=== PATIENT | male | born 1995 | race Two or more races ===

== ENCOUNTER 2019-02-13 06:00 | Emergency (ER) | payer BC, OTHER ==
[2019-02-13 06:14] VITALS: BMI 25.8
[2019-02-13] MEDS ORDERED: SODIUM CHLORIDE 0.9% 1000 ML INFUS.BAG IV ONE (08:09)
--- NOTE | 2019-02-13 08:09 | PDOC ---
History of Present Illness - General Chief Complaint: Altered Mental Status Stated Complaint: AMS Time Seen by Provider: 02/13/19 07:27 History Source: Patient Exam Limitations: No Limitations - History of Present Illness Initial Comments: 02/13/19 08:04 23M with a PMH of asthma who presents to the ER after having a shaking episode. The patient states that him and his friend were smoking marijuana. He then developed chest pain and began to feel weak. He states that he leaned on his friend and felt shaking. His friend states that after the patient leaned on him , he had shaking in his upper extremities without bowel/bladder incontinence, syncope, tongue biting. The patient was not disoriented after this episode. He denies SOB, nausea, vomiting, fever, chills, palpitations, diaphoresis, abdominal pain. He admits to a sharp R parasternal pain that radiates to his neck, is constant, atraumatic, and not worsened with palpation or position. Past History - Past Medical History Allergies/Adverse Reactions: Allergies Allergy/AdvReac Type Severity Reaction Status Date / Time peanut Allergy Verified 02/13/19 08:22 Home Medications: Ambulatory Orders NK [No Known Home Medication] 02/13/19 COPD: No - Suicide/Smoking/Psychosocial Hx Smoking History: Never smoked Have you smoked in the past 12 months: No Hx Alcohol Use: No Drug/Substance Use Hx: Yes (weed) Review of Systems - Review of Systems Able to Perform ROS?: Yes Comments:: 02/13/19 08:25 GENERAL/CONSTITUTIONAL: No fever or chills. No weakness. HEAD, EYES, EARS, NOSE AND THROAT: No change in vision. No ear pain or discharge. No sore throat. CARDIOVASCULAR: + for chest pain. No palpitations or lightheadedness. RESPIRATORY: No cough, wheezing, shortness of breath, or hemoptysis. GASTROINTESTINAL: No abdominal pain, nausea, vomiting, diarrhea, or constipation. GENITOURINARY: No dysuria, frequency, hematuria, or change in urination. MUSCULOSKELETAL: No joint or muscle swelling or pain. No neck or back pain. SKIN: No rash or lesions. NEUROLOGIC: No headache, numbness, tingling, focal weakness, loss of consciousness, or change in strength/sensation. Is the patient limited Stateless proficient: No *Physical Exam - Vital Signs Last Vital Signs Temp Pulse Resp BP Pulse Ox 107 H 18 153/75 100 02/13/19 06:11 02/13/19 06:11 02/13/19 06:11 02/13/19 06:22 - Physical Exam Comments: 02/13/19 08:26 GENERAL: Well developed, well nourished. Lethargic but arousable. No acute distress. HEENT: Normocephalic, atraumatic. Hearing grossly normal. Moist mucous membranes. Dilated pupils, reactive, EOMI. No conjunctival pallor. Sclera are non-icteric. NECK: Supple. Full ROM. No JVD. CARDIOVASCULAR: Regular rate and rhythm. No murmurs, rubs, or gallops. PULMONARY: No evidence of respiratory distress. Lungs clear to auscultation bilaterally. No wheezing, rales or rhonchi. ABDOMINAL: Soft. Non-tender. Non-distended. No rebound or guarding. GENITOURINARY: No CVA tenderness bilaterally. MUSCULOSKELETAL: Normal range of motion at all joints. No bony deformities or tenderness. EXTREMITIES: No cyanosis. No clubbing. No edema. No calf tenderness or swelling. SKIN: Warm and dry. Normal capillary refill. No rashes. No jaundice. NEUROLOGICAL: Alert, awake, appropriate. Cranial nerves 2-12 grossly intact. Normal speech. Gait is normal without ataxia. PSYCHIATRIC: Cooperative. Good eye contact. Appropriate mood and affect. ED Treatment Course - LABORATORY CBC & Chemistry Diagram: 02/13/19 08:04 02/13/19 08:04 - RADIOLOGY Radiology Studies Ordered: Category Date Time Status CHEST PA & LAT [RAD] Stat Radiology 02/13/19 07:40 Ordered Medical Decision Making - Medical Decision Making 02/13/19 08:27 23M who presents with CP after smoking marijuana with dilated pupils concerning for laced product. Pt denies other drug use and states he is "not concerned" about the product being laced. Mother at the bedside demanding information and stating "I am a [employer] at [facility], I was going to sign him out and take him there. I want papers to be his health care proxy". I informed her that we are in the process of evaluating him and that is all the information I can provide. Ddx: marijuana intox, pneumo, anxiety. Due to dilated pupils, concern for cocaine intox and ACS 2/2 vasospasm. EKG shows sinus tach. 02/13/19 09:43 Labs including CBC, CMP, trop unremarkable. Utox negative for everything except opiates. Will give toradol for CP and reassess. 02/13/19 10:16 Pt feels better on reassessment. Will d/c with PCP f/u. *DC/Admit/Observation/Transfer Diagnosis at time of Disposition: Atypical chest pain Marijuana intoxication Qualifiers: Complication of substance-induced condition: uncomplicated Qualified Code(s): F12.920 - Cannabis use, unspecified with intoxication, uncomplicated - Discharge Dispostion Disposition: HOME Condition at time of disposition: Stable Decision to Admit order: No - Referrals - Patient Instructions Printed Discharge Instructions: DI for Atypical Chest Pain Additional Instructions: Your ER visit is not complete until your follow up with your primary care physician. Please follow up with your primary care physician in 1-2 days. Please return to the ER if you have any signs or symptoms of chest pain, shortness of breath, uncontrollable fever, chills, nausea, vomiting, numbness, tingling, or weakness in any part of your body, changes in vision, or slurred speech. Please return to the ER if symptoms persist, worsen, or new symptoms arise. - Post Discharge Activity
[2019-02-13 08:13] LABS: BASO % 0.2 % (0-2.0); EOS % 0.1 % (0-4.5); HEMATOCRIT 43.6 % (35.4-49); HEMOGLOBIN 14.9 GM/dL (11.7-16.9); LYMPH % 13.4 % (8-40); MCH 31.3 pg (25.7-33.7); MCHC 34.1 g/dl (32.0-35.9); MEAN CELL VOLUME 91.8 fl (80-96); MEAN PLT VOLUME 8.2 fl (7.5-11.1); MONO % 11.1 % (3.8-10.2); NEUT % 75.2 % (42.8-82.8); PLATELET COUNT 239 K/MM3 (134-434); RBC 4.75 M/mm3 (4.00-5.60); RDW 13.5 % (11.9-15.9); WHITE BLOOD COUNT 8.8 K/mm3 (4.0-10.0)
--- NOTE | 2019-02-13 09:00 | PDOC ---
Attending Attestation - Resident Resident Name: Raciel Green - ED Attending Attestation I have performed the following: I have examined & evaluated the patient, The case was reviewed & discussed with the resident, I agree w/resident's findings & plan, Exceptions are as noted - HPI HPI: 23 yo M history asthma presents with an episode of weakness and shaking this morning after smoking marijuana at 5am. Episode was witnessed by friend. He has used marijuana in the past, did not do anything differently, uses the same dealer. He states that he felt some R-sided chest pain, then felt weak, had difficulty standing. Denies SOB, cough, ARAG[place]. Currently feeling better. Denies trauma. - Physicial Exam PE: GENERAL: Awake, somnolent, answers questions. +Odor of marijuana HEAD: No signs of trauma EYES: PERRLA, EOMI, sclera anicteric, conjunctiva clear ENT: Auricles normal inspection, hearing grossly normal, nares patent, oropharynx clear without exudates. Moist mucosa NECK: Normal ROM, supple, no lymphadenopathy, JVD, or masses LUNGS: Breath sounds equal, clear to auscultation bilaterally. No wheezes, and no crackles. +Tenderness to R upper chest wall at the sternal margin HEART: Regular rate and rhythm, normal S1 and S2, no murmurs, rubs or gallops ABDOMEN: Soft, nontender, normoactive bowel sounds. No guarding, no rebound. No masses EXTREMITIES: Normal range of motion, no edema. No clubbing or cyanosis. No cords, erythema, or tenderness NEUROLOGICAL: Cranial nerves II through XII grossly intact. Normal speech, normal gait. Motor and sensation intact SKIN: Warm, Dry, normal turgor, no rashes or lesions noted. - Medical Decision Making Pt presents after using marijuana early this morning, had an episode of weakness , cp. Will check basic labs, UTox (to make sure it was not laced with something) , trop, and CXR (r/o ptx). IV fluids, toradol for pain. Will discharge when more alert.
[2019-02-13 09:01] LABS: ALK PHOS 79 U/L (45-117); ANION GAP 8 MMOL/L (8-16); BILIRUBIN,TOTAL 0.8 mg/dL (0.2-1); BLOOD UREA NITROGEN 21.3 mg/dL (7-18); CALCIUM 8.6 mg/dL (8.5-10.1); CHLORIDE 110 mmol/L (98-107); CO2 20 mmol/L (21-32); CREATININE 1.1 mg/dL (0.55-1.3); GLUCOSE,RANDOM 88 mg/dL (74-106); POTASSIUM 4.8 mmol/L (3.5-5.1); SGOT/AST 28 U/L (15-37); SGPT/ALT 31 U/L (13-61); SODIUM 139 mmol/L (136-145); TOT PROT 7.2 g/dl (6.4-8.2)
[2019-02-13] MEDS ORDERED: KETOROLAC TROMETHAMINE 30 MG/1 ML VIAL IVPUSH ONE (09:37)
[2019-02-13 09:41] LABS: COCAINE, UR NEGATIVE ng/ml (CUTOFF=300); METHADONE, UR NEGATIVE ng/ml (CUTOFF=300); OPIATES, URI NEGATIVE ng/ml (CUTOFF=300); PHENCYCLIDINE,URINE NEGATIVE ng/ml (CUTOFF=25); URINE AMPHETAMINES NEGATIVE ng/ml (CUTOFF=500); URINE BARBITURATES NEGATIVE ng/ml (CUTOFF=200); URINE BENZODIAZEPINES NEGATIVE ng/ml (CUTOFF=200)
[2019-02-13] MEDS ORDERED: KETOROLAC TROMETHAMINE 30 MG/1 ML VIAL ONE (09:43)
[2019-02-13 10:35] VITALS: BP 112/56; PULSE 78; TEMP 97.9
--- NOTE | 2019-02-13 13:32 | EKG ---
Test Reason : Blood Pressure : / mmHG Vent. Rate : 103 BPM Atrial Rate : 103 BPM P-R Int : 172 ms QRS Dur : 094 ms QT Int : 328 ms P-R-T Axes : 040 -04 021 degrees QTc Int : 429 ms SINUS TACHYCARDIA WITH PREMATURE ATRIAL COMPLEXES WITH ABERRANT CONDUCTION OTHERWISE NORMAL ECG NO PREVIOUS ECGS AVAILABLE Confirmed by AMY LACEY MD ([id number]) on 02/13/2019 1:32:21 PM Referred By: Confirmed By:AMY LACEY MD
== END 2019-02-13 10:35 | disposition home or self-care (01) ==
LOC: JER 06:00
PROC: 3E0333Z Introduction of Anti-inflammatory into Peripheral Vein, Percutaneous Approach (ICD-10-PCS; principal; 2019-02-13)
PROC: 3E0337Z Introduction of Electrolytic and Water Balance Substance into Peripheral Vein, Percutaneous Approach (ICD-10-PCS; 2019-02-13)
DX: R07.89 Other chest pain (principal); F12.920 Cannabis use, unspecified with intoxication, uncomplicated
CPT/HCPCS: 36415; 71046-TC-FY; 80053; 80307; 82550; 82553; 84484; 85025; 93005; 93010; 99283-25; J7030